=== PATIENT | female | born 1970 | race Caucasian/White ===

== ENCOUNTER → 2016-11-29 | Outpatient (CLI) | payer OTHER | LOC: MAMMO 15:30 | PROVIDERS: ATTEND Family Medicine | DX: Z12.31 Encounter for screening mammogram for malignant neoplasm of breast (principal) ==

== ENCOUNTER → 2017-04-25 | Outpatient (CLI) | payer OTHER ==
--- NOTE | 2017-04-25 13:44 | MAM ---
EXAM DESCRIPTION: 3D Diagnostic, Left: Digital Mammography CLINICAL HISTORY: 46 yearsFemalecyst palpable mass lateral and upper outer quadrant left breast. Tenderness. Consider aspiration if cyst detected. COMPARISON: 3-D tomosynthesis bilateral screening study 12/02/2016. 2-D digital screening bilateral study 02/28/2015. Left breast ultrasound on this visit. Report from prior examination also reviewed. TECHNIQUE: Left breast CC LM MLO projection full-field images, 3-D tomosynthesis digital mammographic technique. Also left breast synthesized CC MLO LM full-field images. CAD not utilized. FINDINGS: The breast parenchymal density pattern is: Heterogeneously dense breast tissue, which may obscure small masses. No skin thickening or nipple retraction solitary microcalcifications. Ultrasound: Mostly homogeneous fibroglandular tissues in the region of interest 200 clock position, 4 cm from the nipple. No discrete solid mass or cyst. No skin changes or parenchymal edema. No large calcifications. IMPRESSION: BI-RADS CATEGORY: 2 - BENIGN FINDINGS. FOLLOW UP: Routine digital bilateral screening, 6 months interval from April 2017. The FINDINGS and the follow-up plan were reviewed in person with the patient after the examination. Written communication explaining the IMPRESSION and follow-up will be mailed to the patient and referring care provider. According to the [employer], yearly mammograms are recommended starting at age 40 and continuing as long as a woman is in good health. Any breast change noted on a breast self-exam should be reported promptly to the patient's healthcare provider. Breast MRI is recommended for women with an approximately 20-25% or greater lifetime risk of breast cancer, including women with a strong family history of breast or ovarian cancer and women who have been treated for Hodgkin's disease. A negative mammographic report should not delay tissue diagnosis in patients with significant clinical history or physical findings. Extremely dense breast tissue limits the sensitivity of digital mammography. Electronically signed by: Eladio Castellanos MD 04/25/2017 1:43 PM STRIPPING SHOVEL OILER
--- NOTE | 2017-04-25 13:45 | US ---
EXAM DESCRIPTION: Breast,Left: Ultrasound CLINICAL HISTORY: 46 yearsFemaleCYST. COMPARISON: Digital 3-D tomosynthesis diagnostic left breast on this visit. Bilateral 3-D screening tomosynthesis mammograms 11/29/2016. TECHNIQUE: Transcutaneous scanning of the upper outer quadrant of the left breast utilizing two-dimensional and Doppler modes. Scanning performed by the linen sorter only. FINDINGS: Mostly homogeneous fibroglandular tissues in the region of interest 200 clock position, 4 cm from the nipple. No discrete solid mass or cyst. No skin changes or parenchymal edema. No large calcifications. IMPRESSION: 1. Bi-Rads Category 2: Benign. 2. Please refer to left breast 3-D tomosynthesis digital diagnostic mammogram and report on this visit. The FINDINGS and the follow-up plan were reviewed in person with the patient after the examination. Written communication explaining the IMPRESSION and follow-up will be mailed to the patient and referring care provider. Electronically signed by: Eladio Castellanos MD 04/25/2017 1:43 PM LACE STRIPPER
== END ==
LOC: US 08:43
PROVIDERS: ATTEND Obstetrics & Gynecology
DX: N60.02 Solitary cyst of left breast (principal); N64.4 Mastodynia; Z80.3 Family history of malignant neoplasm of breast
CPT/HCPCS: 76641; G0206; G0279

== ENCOUNTER → 2018-12-17 | Outpatient (CLI) | payer OTHER | LOC: GMAL 12:11 | PROVIDERS: ATTEND Family Medicine | DX: Z00.00 Encounter for general adult medical examination without abnormal findings (principal); E55.9 Vitamin D deficiency, unspecified ==

== ENCOUNTER 2019-01-09 05:32 | Day surgery (SDC) | payer OTHER ==
[2019-01-09] MEDS ORDERED: LIDOCAINE 1% 10 ML VIAL INJ ONE (07:00)
[2019-01-09] MEDS ORDERED: PROPOFOL 200 MG/20 ML VIAL IV ONE (07:00)
[2019-01-09] MEDS: LACTATED RINGERS 1,000 ML ONE (08:40)
[2019-01-09 09:26] VITALS: O2SAT 100
--- NOTE | 2019-01-09 09:41 | OP ---
DATE OF PROCEDURE: 01/09/19 PROCEDURE: 1. Screening colonoscopy. SURGEON: Ishaan Garcia MD ANESTHESIA: General. PROCEDURE: After completing informed consent in the office and here again in pre-op, the patient was placed in the left lateral position. General anesthesia was induced. Digital rectal exam revealed no evidence of masses, no significant external hemorrhoids. There was a small anal tag. The colonoscope was gently inserted and then passed with minimal difficulty through to the cecum which was identified by the appendiceal orifice. We did did not cannulate the terminal ileum. Upon careful withdrawal and inspection, no significant polyps were seen. There was no evidence of colitis with a good exam and a good prep. She tolerated the procedure. She was then awakened and taken to Recovery in stable condition. We are recommending followup colonoscopy in 10 years based on her current risk factors. #[id number] MTDD
[2019-01-09 11:22] VITALS: BP 120/85; TEMP 97.5
== END 2019-01-09 10:10 | disposition home or self-care (01) ==
LOC: AMB 05:32
PROVIDERS: ATTEND Surgery
DX: Z12.11 Encounter for screening for malignant neoplasm of colon (principal); K64.4 Residual hemorrhoidal skin tags
CPT/HCPCS: 00812; 45378; J3490; J7120

== ENCOUNTER → 2019-01-15 | Outpatient (CLI) | payer OTHER ==
--- NOTE | 2019-01-16 16:30 | MAM ---
EXAM DESCRIPTION: 3D Screening BILATERAL : Digital Mammography. CLINICAL HISTORY: 48 years Female ANNUAL SCREENING . No complaints. No personal history of breast cancer. Remote family history of breast cancer. Childbirth. Premenopausal. No HRT. Lifetime risk of developing breast cancer (Tyrer-Cuzick model)(%): 9.9 COMPARISON: Bilateral screening digital breast tomosynthesis 11/29/2016. Diagnostic left breast tomosynthesis and ultrasound 04/25/2017. TECHNIQUE: Bilateral CC and MLO projection full-field images, digital tomosynthesis mammographic technique. Bilateral digital 2-D full-field MLO images. CAD not available for tomosynthesis or 2-D images. FINDINGS: The breast parenchymal density pattern is: Extremely dense breast tissue, which lowers the sensitivity of mammography. No skin thickening or nipple retraction. Bilateral small parenchymal calcifications. No new focal, stellate mass or density, focal asymmetry , and no suspicious microcalcifications bilaterally. Stable mammograms compared to prior study. Taking into account, differences in mammographic technique. IMPRESSION: Benign exam. BIRAD CATEGORY: 2 BENIGN FINDINGS. RECOMMENDATIONS: FOLLOW UP: Routine digital bilateral mammographic screening, one year interval from January 2019. Written communication explaining the IMPRESSION and follow-up, will be mailed to the patient and referring health care provider. According to the [employer], yearly mammograms are recommended starting at age 40 and continuing as long as a woman is in good health. Any breast change noted on a breast self-exam should be reported promptly to the patient's healthcare provider. Breast MRI is recommended for women with an approximately 20-25% or greater lifetime risk of breast cancer, including women with a strong family history of breast or ovarian cancer and women who have been treated for Hodgkin's disease. A negative mammographic report should not delay tissue diagnosis in patients with significant clinical history or physical findings. Extremely dense breast tissue limits the sensitivity of digital mammography. Electronically signed by: Eladio Castellanos MD 01/16/2019 4:28 PM CDT
== END ==
LOC: MAMMO 08:04
PROVIDERS: ATTEND Family Medicine
DX: Z12.31 Encounter for screening mammogram for malignant neoplasm of breast (principal)

== ENCOUNTER → 2020-05-04 | Outpatient (CLI) | payer OTHER ==
--- NOTE | 2020-05-11 18:11 | MAM ---
EXAM DESCRIPTION: 3D Screening BILATERAL : Digital Mammography. CLINICAL HISTORY: 49 years Female SCREEN . Tightness in the upper outer quadrant of the left breast. No other complaints. Remote family history of breast cancer. Menarche age 10. Childbirth age 24. Perimenopausal. No HRT.. Lifetime risk of developing breast cancer (Tyrer-Cuzick model)(%): 9.7. COMPARISON: Bilateral screening digital breast tomosynthesis January 2019 and November 2016. Diagnostic digital left breast tomosynthesis April 2017. TECHNIQUE: Bilateral CC and MLO projection full-field images, digital tomosynthesis mammographic technique. Bilateral digital 2-D full-field MLO images. and CC images. CAD available for 2-D images. FINDINGS: The breast parenchymal density pattern is: Heterogeneously dense breast tissue, which may obscure small masses. Solitary microcalcifications. No skin thickening or nipple retraction No new focal, stellate mass or density, focal asymmetry , and no suspicious microcalcifications bilaterally. Stable mammograms compared to prior study. IMPRESSION: Benign exam. BIRAD CATEGORY: 2 BENIGN FINDINGS. RECOMMENDATIONS: FOLLOW UP: Routine digital bilateral mammographic screening, one year interval from April 2020. Written communication explaining the IMPRESSION and follow-up, will be mailed to the patient and referring health care provider. According to the [employer], yearly mammograms are recommended starting at age 40 and continuing as long as a woman is in good health. Any breast change noted on a breast self-exam should be reported promptly to the patient's healthcare provider. Breast MRI is recommended for women with an approximately 20-25% or greater lifetime risk of breast cancer, including women with a strong family history of breast or ovarian cancer and women who have been treated for Hodgkin's disease. A negative mammographic report should not delay tissue diagnosis in patients with significant clinical history or physical findings. Extremely dense breast tissue limits the sensitivity of digital mammography. Electronically signed by: Eladio Castellanos MD 05/11/2020 6:09 PM [employer]
== END ==
LOC: MAMMO 08:53
PROVIDERS: ATTEND Family Medicine
DX: Z12.31 Encounter for screening mammogram for malignant neoplasm of breast (principal)

== ENCOUNTER → 2020-06-13 | Outpatient (CLI) | payer OTHER | LOC: GMAL 10:30 | PROVIDERS: ATTEND Family Medicine | DX: D51.3 Other dietary vitamin B12 deficiency anemia (principal); D53.9 Nutritional anemia, unspecified; R53.83 Other fatigue; E55.9 Vitamin D deficiency, unspecified; Z79.899 Other long term (current) drug therapy; E78.49 Other hyperlipidemia ==